=== PATIENT | female | born 1980 | race Caucasian/White ===

== ENCOUNTER 2016-09-10 03:01 | Emergency (ER) | payer OTHER ==
--- NOTE | 2016-09-10 03:32 | PDOC ---
History of Present Illness - General History Source: Patient Exam Limitations: No Limitations - History of Present Illness Initial Comments: 09/10/16 03:36 The patient is a 35 year old female with no significant past medical history who presents to the ED with sudden onset of chest pain few hours prior to arrival. Patient reports around 9:30pm she was lying down watching tv when she felt a sudden sharp pain along the left sternal border radiating down the left arm. Subsequently, the pain resolved on its own and then returned around midnight. She denies diaphoresis, lightheadedness, SOB, jaw pain, nausea, and vomiting. Patient reports having a similar episode in the past, when she decided to seek medical attention and told it was due to stress. She admits to having stress factors. Patient also has complaints of a mild headache. The patient denies fever, chills, cough, abdominal pain, and diarrhea. Allergies: NKDA Social History: No alcohol, tobacco, or drug use reported. Past Surgical History: None reported <Hemalatha Mcneil - Last Filed: 09/10/16 03:36> - General History Source: Patient <DaydaySha sheth - Last Filed: 09/10/16 06:06> - General Chief Complaint: Chest Pain Stated Complaint: CHEST PAIN Time Seen by Provider: 09/10/16 03:30 Past History <Hemalatha Mcneil - Last Filed: 09/10/16 03:36> - Past Medical History Asthma: No Cancer: No Cardiac Disorders: No Diabetes: No HTN: No Seizures: No Thyroid Disease: No - Psycho/Social/Smoking Cessation Hx Anxiety: No Suicidal Ideation: No Smoking Status: No Smoking History: Never smoked Have you smoked in the past 12 months: No Number of Cigarettes Smoked Daily: 0 Information on smoking cessation initiated: No Hx Alcohol Use: No Drug/Substance Use Hx: No Substance Use Type: None Hx Substance Use Treatment: No <Sha Peters - Last Filed: 09/10/16 06:06> - Past Medical History Allergies/Adverse Reactions: Allergies Allergy/AdvReac Type Severity Reaction Status Date / Time No Known Allergies Allergy Verified 03/27/14 00:21 Home Medications: Ambulatory Orders Amox-Tr/K Cl [Augmentin 875-125mg Tablet -] 1 tab PO BID #20 tablet 04/23/13 Ciprofloxacin HCl/Dexameth [Ciprodex Otic Suspension] 4 drop AD TID #1 bottle No Home Medications 0 dose .ROUTE UTDICT 04/23/13 Ibuprofen [Motrin -] 600 mg PO Q4H PRN #60 tablet 03/27/14 Review of Systems - Review of Systems Able to Perform ROS?: Yes Comments:: 09/10/16 03:38 CONSTITUTIONAL: Absent: fever, no chills, no fatigue EYES: Absent: visual changes ENT: Absent: ear pain, no sore throat CARDIOVASCULAR: +left sternal border chest pain radiating down left arm Absent: no palpitations RESPIRATORY: Absent: cough, no SOB GI: Absent: abdominal pain, no nausea, no vomiting, no constipation, no diarrhea GENITOURINARY: Absent: dysuria, no frequency, no hematuria MUSKULOSKELETAL: Absent: back pain, no arthralgia, no myalgia SKIN: Absent: rash NEURO: +headache <Hemalatha Mcneil - Last Filed: 09/10/16 03:36> *Physical Exam - Vital Signs Last Vital Signs Temp Pulse Resp BP Pulse Ox 98.1 F 94 H 18 146/92 98 09/10/16 03:13 09/10/16 03:13 09/10/16 03:13 09/10/16 03:13 09/10/16 03:13 - Physical Exam Comments: 09/10/16 03:38 GENERAL: Well-appearing, well-nourished. No apparent distress. HEENT: Normocephalic, atraumatic. PERRL, EOM intact. CARDIOVASCULAR: Normal S1, S2. Regular rate and rhythm. PULMONARY: Clear to auscultation bilaterally. ABDOMEN: Soft, non-distended, non-tender. EXTREMITIES: Normal ROM in all four extremities. No gross deformities. SKIN: Warm, dry. No rash NEUROLOGICAL: No focal neurological deficits. <Hemalatha Mcneil - Last Filed: 09/10/16 03:36> - Vital Signs Last Vital Signs Temp Pulse Resp BP Pulse Ox 98.1 F 94 H 18 146/92 98 09/10/16 03:13 09/10/16 03:13 09/10/16 03:13 09/10/16 03:13 09/10/16 03:13 <Sha Peters - Last Filed: 09/10/16 06:06> Heart Score/ECG Review - ECG Impressions Comment:: 09/10/16 03:38 NSR @81bpm Normal ECG <Hemalatha Mcneil - Last Filed: 09/10/16 03:36> ED Treatment Course - LABORATORY CBC & Chemistry Diagram: 09/10/16 03:40 09/10/16 03:40 <Sha Peters - Last Filed: 09/10/16 06:06> Medical Decision Making - Medical Decision Making 09/10/16 05:58 Dr. Peters: The scribe's documentation has been prepared under my direction and personally reviewed by me in its entirery. I confirm that the note above accurately reflects all work, treatment, procedures, and medical decision making performed by me. <Sha Peters - Last Filed: 09/10/16 06:06> *DC/Admit/Observation/Transfer - Attestations Scribe Attestion: 09/10/16 03:38 Documentation prepared by Hemalatha Mcneil, acting as vice president medical affairs for Sha Peters MD <Hemalatha Mcneil - Last Filed: 09/10/16 03:36> - Discharge Dispostion Admit: No <Sha Peters - Last Filed: 09/10/16 06:06> Diagnosis at time of Disposition: Chest pain - Discharge Dispostion Disposition: HOME Condition at time of disposition: Stable - Referrals Referrals: Roni Gregorio MD [Staff Physician] - - Patient Instructions Printed Discharge Instructions: DI for Chest Pain Print Language: ECUADOREAN
[2016-09-10 03:41] VITALS: BP 146/92; PULSE 94; TEMP 98.1; BMI 36.3
[2016-09-10 04:07] LABS: BASOPHIL 0.9 % (0-2.0); EOSINOPHIL 4.7 % (0-4.5); MCH 29.2 pg (25.7-33.7); MCHC 33.5 g/dl (32.0-36.0); MEAN CELL VOLUME 87.2 fl (80-96); MEAN PLT VOLUME 9.8 fl (7.5-11.1); NEUTROPHILS 58.6 % (42.8-82.8); PLATELET COUNT 161 K/MM3 (134-434); WHITE BLOOD COUNT 6.1 K/mm3 (4.0-10.0)
[2016-09-10 05:21] LABS: ALBUMIN 3.8 g/dl (3.4-5.0); ANION GAP 7 (8-16); BILIRUBIN,TOTAL 0.4 mg/dL (0.2-1.0); CALCIUM 8.3 mg/dL (8.5-10.1); CO2 23 mmol/L (21-32); CREATININE 0.6 mg/dL (0.55-1.02); GLUCOSE,RANDOM 116 mg/dL (74-106); SGOT/AST 26 U/L (15-37); SGPT/ALT 57 U/L (12-78); TOT PROT 7.3 g/dl (6.4-8.2)
[2016-09-10 05:24] LABS: ALK PHOS 117 U/L (45-117); TROPONIN I < 0.02 ng/ml (0.00-0.05)
--- NOTE | 2016-09-10 15:36 | EKG ---
Test Reason : Blood Pressure : / mmHG Vent. Rate : 081 BPM Atrial Rate : 081 BPM P-R Int : 154 ms QRS Dur : 098 ms QT Int : 368 ms P-R-T Axes : 026 -10 011 degrees QTc Int : 427 ms POOR DATA QUALITY, INTERPRETATION MAY BE ADVERSELY AFFECTED NORMAL SINUS RHYTHM NORMAL ECG NO PREVIOUS ECGS AVAILABLE Confirmed by RUDDY HOFFMAN MD ([id number]) on 09/10/2016 3:35:54 PM Referred By: Confirmed By:RUDDY HOFFMAN MD
== END 2016-09-10 06:14 | disposition home or self-care (01) ==
LOC: JER 03:01
DX: R07.89 Other chest pain (principal)
CPT/HCPCS: 36415; 80053; 82550; 82553; 84484; 84703; 85025; 93005; 93010; 99282-25

== ENCOUNTER 2019-04-22 02:09 | Emergency (ER) | payer OTHER ==
[2019-04-22 02:48] VITALS: BMI 34.6
--- NOTE | 2019-04-22 04:03 | PDOC ---
History of Present Illness - General Chief Complaint: Vaginal Bleeding Stated Complaint: VAGINAL BLEED Time Seen by Provider: 04/22/19 03:25 - History of Present Illness Initial Comments: Ms. Miller is a A1 @ 9 weeks 38 y/o female with PMH of anemia presenting with vaginal bleed. Reports that she started an elective termination on at [facility]. Took 1 tab of misoprostol on and 4 yesterday and is due for another 4 today. Reports subjective fever and chills, right sided abdominal pain, nausea, and vaginal bleeding that started yesterday. Reports that she has gone through numerous pads with vaginal bleeding. Reports that the abdominal pain is cramping in nature. Reports associated dizziness. Denies vomiting, chest pain, shortness of breath, dysuria, hematuria, hematochezia. Past History - Past Medical History Allergies/Adverse Reactions: Allergies Allergy/AdvReac Type Severity Reaction Status Date / Time No Known Allergies Allergy Verified 04/22/19 02:48 Home Medications: Ambulatory Orders Amox-Tr/K Cl [Augmentin 875-125mg Tablet -] 1 tab PO BID #20 tablet 04/23/13 Ciprofloxacin HCl/Dexameth [Ciprodex Otic Suspension] 4 drop AD TID #1 bottle No Home Medications 0 dose .ROUTE UTDICT 04/23/13 Ibuprofen [Motrin -] 600 mg PO Q4H PRN #60 tablet 03/27/14 Asthma: No Cancer: No Cardiac Disorders: No Diabetes: No HTN: No Seizures: No Thyroid Disease: No - Suicide/Smoking/Psychosocial Hx Smoking Status: No Smoking History: Never smoked Have you smoked in the past 12 months: No Number of Cigarettes Smoked Daily: 0 Hx Alcohol Use: No Drug/Substance Use Hx: No Substance Use Type: None Hx Substance Use Treatment: No Review of Systems - Review of Systems Comments:: GENERAL/CONSTITUTIONAL: Reports fever or chills. No weakness._ HEAD, EYES, EARS, NOSE AND THROAT: No change in vision. No change in hearing. No sore throat._ CARDIOVASCULAR: No chest pain or shortness of breath. RESPIRATORY: Denies cough, hemoptysis. GASTROINTESTINAL: Reports nausea. No vomiting, diarrhea or constipation. Reports abdominal pain. GENITOURINARY: Reports vaginal bleeding. No dysuria, frequency, or change in urination._ MUSCULOSKELETAL: No joint or muscle swelling or pain. No neck or back pain._ SKIN: No rash_ NEUROLOGIC: Reports lightheadedness. No headache, vertigo, loss of consciousness , or change in strength/sensation._ ENDOCRINE: No increased thirst. No abnormal weight change_ HEMATOLOGIC/LYMPHATIC: No anemia, easy bleeding, or history of blood clots._ ALLERGIC/IMMUNOLOGIC: No hives or skin allergy._ *Physical Exam - Vital Signs Last Vital Signs Temp Pulse Resp BP Pulse Ox 98.1 F 126 H 16 132/95 99 04/22/19 02:09 04/22/19 02:09 04/22/19 02:04/22/19 02:04/22/19 02:09 - Physical Exam Comments: GENERAL: Awake, alert, and oriented to person/place/time, in no acute distress_ HEAD: No signs of trauma, normocephalic, atraumatic _ EYES: PERRLA, EOMI, sclera anicteric, conjunctiva clear_ ENT: Hearing grossly normal, nares patent, oropharynx clear without exudates. No uvular deviation. Moist mucosa_ NECK: Normal ROM, supple, no lymphadenopathy, JVD, or masses_ LUNGS: No distress, speaks in full sentences, clear to auscultation bilaterally _ HEART: Regular rate and rhythm, normal S1 and S2, no murmurs appreciated, peripheral pulses normal and equal bilaterally._ ABDOMEN: Soft, TTP RUQ and RLQ, normoactive bowel sounds. No guarding, no rebound. No masses_ EXTREMITIES: Normal inspection, Normal range of motion, no edema. No clubbing or cyanosis_ NEUROLOGICAL: Cranial nerves II through XII grossly intact. Normal speech, normal gait, no focal sensorimotor deficits _ SKIN: Warm, Dry, normal turgor, no rashes or lesions noted_ PELVIC External genitalia unremarkable. Speculum exam blood observed in the posterior fornix. Vaginal wall mucosa is unremarkable. Cervix visualized and is unremarkable (closed in appearance without any protruding material). Bimanual exam without cervical motion tenderness. Mild left adnexal tenderness. ED Treatment Course - LABORATORY CBC & Chemistry Diagram: 04/22/19 04:44 04/22/19 04:44 Medical Decision Making - Medical Decision Making 38F A1 @ 9 weeks. Began elective termination on Thursday. Fever/chills/ vaginal bleeding/abdominal pain/dizziness starting yesterday. -CBC, CMP, beta HCG, type and screen, coags -tylenol IV, NS 04/22/19 06:54 Labs reviewed and wnl. Hgb stable at 12.4. No elevated WBC. Patient reports that she is feeling better after meds. Abdominal pain has resolved. As the patient is in the middle of elective termination, at this time it is not necessary to examine for retained products of conception. Plan to d/c home with strict return precautions. *DC/Admit/Observation/Transfer Diagnosis at time of Disposition: Termination of - Discharge Dispostion Disposition: HOME Condition at time of disposition: Stable - Referrals - Patient Instructions Additional Instructions: Please take Tylenol as needed for pain - follow the instructions on the package. Please keep your follow up appointment with [facility] in two weeks. If you experience any new, worsening, or concerning symptoms, including vaginal bleeding that does not stop, severe headache, chest pain, shortness of breath, nausea/vomiting, dizziness, or any other concerns, please return to the emergency department. - Post Discharge Activity
--- NOTE | 2019-04-22 04:05 | PDOC ---
Attending Attestation - Resident Resident Name: Javi Peterson - ED Attending Attestation I have performed the following: I have examined & evaluated the patient, The case was reviewed & discussed with the resident, I agree w/resident's findings & plan - HPI HPI: 04/22/19 06:09 Pt had misoprostol day before yesterday and yesterday; now with vag bleed, cramps and pain. Pt wants to know what is up. She has a lot of vag bleeding. - Physicial Exam PE: 04/22/19 06:10 Agree with resident exam. - Medical Decision Making 04/22/19 06:53 Vag exam normal; os closed; minimal bleeding inside vag vault. Pt's vitals returned to normal; no pain and no bleeding. No need for sono at this time. Pt will continue with her final dose of misoprostol at 3PM today; she is stable for discharge.
[2019-04-22] MEDS ORDERED: ACETAMINOPHEN 1000 MG/100 ML VIAL (NON FORMULARY) IVPB ONE (04:56)
[2019-04-22] MEDS ORDERED: SODIUM CHLORIDE 0.9% 500 ML INFUS.BAG IV ONE (04:56)
[2019-04-22 05:04] LABS: BASO % 0.3 % (0-2.0); EOS % 1.5 % (0-4.5); HEMATOCRIT 38.6 % (32.4-45.2); HEMOGLOBIN 12.4 GM/dL (10.7-15.3); LYMPH % 14.2 % (8-40); MCH 26.6 pg (25.7-33.7); MCHC 32.3 g/dl (32.0-36.0); MEAN CELL VOLUME 82.5 fl (80-96); MEAN PLT VOLUME 9.5 fl (7.5-11.1); MONO % 7.5 % (3.8-10.2); NEUT % 76.5 % (42.8-82.8); PLATELET COUNT 199 K/MM3 (134-434); RBC 4.68 M/mm3 (3.60-5.2); RDW 16.6 % (11.6-15.6)
[2019-04-22] MEDS ORDERED: ACETAMINOPHEN INJECTION 100 ML IVPB ONE (05:11)
[2019-04-22 05:20] LABS: INR 1.03 (0.83-1.09); PROTHROMBIN TIME (PATIENT) 12.1 SEC (9.7-13.0)
[2019-04-22 05:32] LABS: ALBUMIN 3.5 g/dl (3.4-5.0); BILIRUBIN,TOTAL 0.4 mg/dL (0.2-1); BLOOD UREA NITROGEN 9.9 mg/dL (7-18); CALCIUM 9.4 mg/dL (8.5-10.1); CREATININE 0.8 mg/dL (0.55-1.3); POTASSIUM 4.5 mmol/L (3.5-5.1)
[2019-04-22 07:12] VITALS: BP 106/71; PULSE 77; TEMP 98.4
== END 2019-04-22 07:13 | disposition home or self-care (01) ==
LOC: JER 02:09
DX: O03.4 Incomplete spontaneous abortion without complication (principal)
CPT/HCPCS: 36415; 80053; 84702; 85025; 85610; 86850; 86900; 86901; 99283-25; J0131

== ENCOUNTER 2020-11-09 02:38 | Day surgery (SDC) | payer OTHER ==
[2020-11-09 02:47] VITALS: BMI 36.9
[2020-11-09] MEDS ORDERED: SODIUM CHLORIDE 0.9% 500 ML INFUS.BAG IV ONE (02:49)
[2020-11-09] MEDS ORDERED: KETOROLAC TROMETHAMINE 30 MG/1 ML VIAL IVPUSH ONE (03:05)
[2020-11-09] MEDS ORDERED: KETOROLAC TROMETHAMINE 15 MG/ML VIAL ONE (03:13)
[2020-11-09 03:35] LABS: BASO % 0.3 % (0-2.0); EOS % 2.9 % (0-4.5); HEMATOCRIT 26.6 % (32.4-45.2); HEMOGLOBIN 8.5 GM/dL (10.7-15.3); LYMPH % 23.2 % (8-40); MCH 23.2 pg (25.7-33.7); MEAN CELL VOLUME 72.6 fl (80-96); MEAN PLT VOLUME 9.1 fl (7.5-11.1); MONO % 5.7 % (3.8-10.2); NEUT % 67.9 % (42.8-82.8); PLATELET COUNT 213 K/MM3 (134-434); RBC 3.67 M/mm3 (3.60-5.2); RDW 16.7 % (11.6-15.6); WHITE BLOOD COUNT 9.4 K/mm3 (4.0-10.0)
[2020-11-09 03:44] LABS: INR 0.95 (0.83-1.09); PROTHROMBIN TIME (PATIENT) 11.7 SEC (9.7-13.0)
[2020-11-09 07:09] LABS: POTASSIUM 3.8 mmol/L (3.5-5.1)
[2020-11-09 07:11] LABS: CALCIUM 8.8 mg/dL (8.5-10.1)
[2020-11-09 07:12] LABS: ALBUMIN 2.7 g/dl (3.4-5.0); BLOOD UREA NITROGEN 6.4 mg/dL (7-18)
[2020-11-09 07:15] LABS: CREATININE 0.4 mg/dL (0.55-1.3)
[2020-11-09 07:16] LABS: BILIRUBIN,TOTAL 0.2 mg/dL (0.2-1); TOT PROT 6.4 g/dl (6.4-8.2)
[2020-11-09] MEDS ORDERED: SODIUM CHLORIDE 0.9% 1000 ML INFUS.BAG IV ONE (07:58)
[2020-11-09] MEDS ORDERED: OXYTOCIN 20 UNITS in 0.9% NS 20 UNIT/1,000 ML INFUS.BAG IV SCH ×2 (08:00→12:45)
[2020-11-09] MEDS ORDERED: OXYTOCIN 10 UNITS/ML VIAL ONE (08:01)
[2020-11-09 08:16] LABS: ALBUMIN 2.6 g/dl (3.4-5.0); BILIRUBIN,TOTAL 0.3 mg/dl (0.2-1); CALCIUM 8.3 mg/dl (8.5-10); CREATININE 0.4 mg/dl (0.55-1.3); TOT PROT 5.5 g/dl (6.4-8.2)
[2020-11-09 08:17] LABS: BASO % 0.5 % (0-2.0); EOS % 1.7 % (0-4.5); HEMATOCRIT 23.5 % (32.4-45.2); HEMOGLOBIN 7.5 GM/dl (10.7-15.3); LYMPH % 18.1 % (8-40); MCH 23.1 pg (25.7-33.7); MCHC 31.7 g/dl (32.0-36.0); MEAN CELL VOLUME 72.9 fl (80-96); MONO % 2.9 % (3.8-10.2); NEUT % 76.8 % (42.8-82.8); PLATELET COUNT 162 K/MM3 (134-434); RBC 3.23 M/mm3 (3.60-5.2); RDW 15.5 % (11.6-15.6); WHITE BLOOD COUNT 8.9 K/mm3 (4.0-10.8)
[2020-11-09] MEDS ORDERED: PROPOFOL 20 ML ONE (11:32)
[2020-11-09] MEDS ORDERED: MIDAZOLAM HCL 2 MG/2 ML SINGLE DOSE VIAL ONE (11:32)
[2020-11-09] MEDS ORDERED: ROCURONIUM BROMIDE 50 MG/5 ML SYRINGE ONE (12:07)
[2020-11-09] MEDS ORDERED: ceFAZolin 2 GRAM PREMIX BAG IVPB ONE (12:12)
[2020-11-09] MEDS ORDERED: ceFAZolin SODIUM 1 GM VIAL ONE (12:16)
[2020-11-09] MEDS ORDERED: KETOROLAC TROMETHAMINE 30 MG/1 ML VIAL ONE (12:23)
[2020-11-09] MEDS ORDERED: DEXAMETHASONE SOD PHOSPHATE 4 MG/1 ML VIAL ONE (12:23)
[2020-11-09] MEDS ORDERED: NEOSTIGMINE METHYLSULFATE 0.5 MG/ML - 10 ML MDV ONE (12:39)
[2020-11-09] MEDS ORDERED: ACETAMINOPHEN 325 MG TABLET (FP) PO PRN (12:46)
[2020-11-09] MEDS ORDERED: ONDANSETRON 4 MG/2 ML VIAL IVPUSH PRN (12:49)
[2020-11-09] MEDS ORDERED: IBUPROFEN 400 MG TABLET (FP) PO PRN (12:50)
[2020-11-09 21:37] LABS: BASO % 0.1 % (0-2.0); EOS % 0.1 % (0-4.5); HEMATOCRIT 27.2 % (32.4-45.2); HEMOGLOBIN 8.8 GM/dL (10.7-15.3); LYMPH % 14.4 % (8-40); MCH 24.9 pg (25.7-33.7); MCHC 32.5 g/dl (32.0-36.0); MEAN CELL VOLUME 76.7 fl (80-96); MEAN PLT VOLUME 9.3 fl (7.5-11.1); MONO % 1.1 % (3.8-10.2); NEUT % 84.3 % (42.8-82.8); PLATELET COUNT 179 K/MM3 (134-434); RBC 3.54 M/mm3 (3.60-5.2); RDW 17.5 % (11.6-15.6); WHITE BLOOD COUNT 8.2 K/mm3 (4.0-10.0)
[2020-11-10 03:38] VITALS: BP 117/61; PULSE 58; TEMP 98.8
== END 2020-11-10 09:00 | disposition home or self-care (01) ==
LOC: JER 02:38 → FER 02:38 → JASUSAT 11:00 → J8W 15:44 → JASUSAT 11-10 09:00
PROVIDERS: ATTEND Obstetrics & Gynecology
PROC: 10D17ZZ Extraction of Products of Conception, Retained, Via Natural or Artificial Opening (ICD-10-PCS; principal; 2020-11-09 11:08)
DX: O03.4 Incomplete spontaneous abortion without complication (principal)
CPT/HCPCS: 36415; 36430; 76856-TC; 80053; 84702; 85025; 85610; 86850; 86900; 86901; 86922; 87070; 87075; 87205; 88305-TC; 94760; 99285-25; C9803; P9038; P9058; U0003

== ENCOUNTER 2021-03-21 00:54 | Inpatient (IN) | payer OTHER ==
[2021-03-21] MEDS ORDERED: morphine CARPU-JECT 2 MG/1 ML DISP.SYRIN IVPUSH ONE ×2 (01:42→03:44)
[2021-03-21] MEDS ORDERED: MORPHINE SULFATE 2 MG/ML VIAL ONE ×2 (01:56→04:20)
[2021-03-21 02:38] LABS: BASO % 0.7 % (0-2.0); EOS % 5.5 % (0-4.5); HEMATOCRIT 30.3 % (32.4-45.2); HEMOGLOBIN 9.1 GM/dL (10.7-15.3); LYMPH % 28.4 % (8-40); MCHC 29.9 g/dl (32.0-36.0); MEAN CELL VOLUME 61.8 fl (80-96); MEAN PLT VOLUME 8.2 fl (7.5-11.1); MONO % 5.6 % (3.8-10.2); NEUT % 59.8 % (42.8-82.8); PLATELET COUNT 243 10^3/uL (134-434); RDW 18.5 % (11.6-15.6); WHITE BLOOD COUNT 6.4 K/mm3 (4.0-10.0)
[2021-03-21 02:40] LABS: URINE APPEARANCE CLEAR; URINE BILIRUBIN NEGATIVE (NEGATIVE); URINE COLOR YELLOW; URINE GLUCOSE (UA) NEGATIVE (NEGATIVE); URINE KETONE NEGATIVE (NEGATIVE); URINE LEUK ESTERASE NEGATIVE (NEGATIVE); URINE NITRITE NEGATIVE (NEGATIVE); URINE PROTEIN NEGATIVE (NEGATIVE); URINE UROBILINOGEN 0.2 mg/dL (0.2-1.0)
[2021-03-21 02:47] LABS: INR 0.98 (0.83-1.09); PROTHROMBIN TIME (PATIENT) 11.9 SEC (9.7-13.0)
[2021-03-21 02:48] LABS: HCG,QUALITATIVE URINE Negative
[2021-03-21 03:00] LABS: BLOOD UREA NITROGEN 5.3 mg/dL (7-18)
[2021-03-21 03:04] LABS: BILIRUBIN,TOTAL 0.2 mg/dL (0.2-1)
[2021-03-21 03:26] LABS: MCH 18.5 pg (25.7-33.7)
[2021-03-21 03:51] LABS: CALCIUM 8.4 mg/dL (8.5-10.1); CREATININE 0.4 mg/dL (0.55-1.3); TOT PROT 8.3 g/dl (6.4-8.2)
[2021-03-21 05:12] LABS: ANISOCYTOSIS 2+; MACROCYTOSIS 1+; PLATELET ESTIMATE NORMAL
[2021-03-21] MEDS ORDERED: morphine CARPU-JECT 4 MG/1 ML DISP.SYRIN IVPUSH ONE (08:44)
[2021-03-21] MEDS ORDERED: morphine SULFATE 4 MG/ML VIAL ONE (08:48)
[2021-03-21] MEDS ORDERED: ROPIVACAINE HCL 0.5% 30ML VIAL ONE (13:00)
[2021-03-21] MEDS ORDERED: MIDAZOLAM HCL 2 MG/2 ML SINGLE DOSE VIAL ONE ×5 (13:02→13:57)
[2021-03-21] MEDS ORDERED: ceFAZolin SODIUM 1 GM VIAL IVPB ONE (13:45)
[2021-03-21] MEDS ORDERED: PROPOFOL 20 ML ONE (13:53)
[2021-03-21] MEDS ORDERED: PROMETHAZINE HCL 25 MG/1 ML VIAL IVPUSH PRN (15:10)
[2021-03-21] MEDS ORDERED: ONDANSETRON 4 MG/2 ML VIAL IVPUSH PRN (15:10)
[2021-03-21] MEDS ORDERED: ceFAZolin SODIUM 1 GM VIAL ONE (17:47)
[2021-03-21] MEDS ORDERED: DEXTROSE 5%-WATER - 50 ML IVPB ONE (17:47)
[2021-03-21] MEDS: CEFAZOLIN 1 GM in DEXTROSE 5%-WATER - 50 ML IVPB SCH (18:01)
[2021-03-21 18:13] VITALS: BMI 37.3
[2021-03-21] MEDS: oxyCODONE HCL 5 MG TABLET PO PRN ×2 (18:33→22:48)
[2021-03-21] MEDS: FERROUS GLUCONATE 324 MG TAB (FP) PO SCH (21:26)
[2021-03-22] MEDS ORDERED: DEXTROSE 5%-WATER - 50 ML IVPB ONE ×2 (00:54→10:24)
[2021-03-22] MEDS ORDERED: ceFAZolin SODIUM 1 GM VIAL ONE ×2 (00:54→10:24)
[2021-03-22] MEDS: CEFAZOLIN 1 GM in DEXTROSE 5%-WATER - 50 ML IVPB SCH ×2 (01:35→10:28)
[2021-03-22] MEDS: oxyCODONE HCL 5 MG TABLET PO PRN ×2 (04:21→10:29)
[2021-03-22] MEDS: MORPHINE SULFATE 2 MG/ML VIAL IVPUSH PRN ×3 (08:51→21:13)
[2021-03-22] MEDS ORDERED: ACETAMINOPHEN 325 MG TABLET (FP) PO ONE (09:30)
[2021-03-22 10:08] LABS: BASO % 0.4 % (0-2.0); HEMATOCRIT 26.3 % (32.4-45.2); LYMPH % 11.9 % (8-40); MCH 19.1 pg (25.7-33.7); MCHC 30.5 g/dl (32.0-36.0); MEAN CELL VOLUME 62.5 fl (80-96); MEAN PLT VOLUME 9.1 fl (7.5-11.1); NEUT % 74.7 % (42.8-82.8); PLATELET COUNT 177 10^3/uL (134-434); RBC 4.21 M/mm3 (3.60-5.2); RDW 18.9 % (11.6-15.6); WHITE BLOOD COUNT 9.1 K/mm3 (4.0-10.0)
[2021-03-22 10:28] LABS: ALBUMIN 3.5 g/dl (3.4-5.0); CALCIUM 8.3 mg/dL (8.5-10.1); MAGNESIUM 1.9 mg/dL (1.8-2.4)
[2021-03-22] MEDS: FERROUS GLUCONATE 324 MG TAB (FP) PO SCH ×2 (10:29→21:13)
[2021-03-22] MEDS: HYDROCHLOROTHIAZIDE 12.5 MG CAPSULE (FP) PO SCH (10:29)
[2021-03-22 10:31] LABS: CREATININE 0.5 mg/dL (0.55-1.3)
[2021-03-22 10:33] LABS: BILIRUBIN,TOTAL 0.8 mg/dL (0.2-1); TOT PROT 7.2 g/dl (6.4-8.2)
[2021-03-22] MEDS ORDERED: PT OWN MED DRAWER 7, Y5N ONE (13:05)
[2021-03-22] MEDS: ENOXAPARIN NA (PORCINE) 40 MG/0.4 ML DISP.SYRIN SQ SCH (16:32)
[2021-03-22] MEDS: ACETAMINOPHEN 325 MG TABLET (FP) PO PRN (17:06)
[2021-03-22] MEDS ORDERED: DOCUSATE SODIUM 100 MG CAPSULE (FP) PO ONE (20:03)
[2021-03-23] MEDS: MORPHINE SULFATE 2 MG/ML VIAL IVPUSH PRN ×3 (02:15→14:43)
[2021-03-23 09:33] LABS: BASO % 0.4 % (0-2.0); EOS % 1.7 % (0-4.5); HEMATOCRIT 27.2 % (32.4-45.2); HEMOGLOBIN 8.4 GM/dL (10.7-15.3); LYMPH % 14.3 % (8-40); MCHC 30.8 g/dl (32.0-36.0); MEAN CELL VOLUME 61.9 fl (80-96); MEAN PLT VOLUME 9.3 fl (7.5-11.1); MONO % 11.2 % (3.8-10.2); NEUT % 72.4 % (42.8-82.8); PLATELET COUNT 194 10^3/uL (134-434); RBC 4.38 M/mm3 (3.60-5.2); RDW 18.5 % (11.6-15.6)
[2021-03-23 09:34] LABS: MCH 19.1 pg (25.7-33.7)
[2021-03-23 10:19] LABS: BLOOD UREA NITROGEN 5.6 mg/dL (7-18); CALCIUM 8.4 mg/dL (8.5-10.1); MAGNESIUM 2.3 mg/dL (1.8-2.4)
[2021-03-23 10:22] LABS: CREATININE 0.4 mg/dL (0.55-1.3)
[2021-03-23 10:25] LABS: PHOSPHOROUS 3.6 mg/dL (2.5-4.9)
[2021-03-23] MEDS: FERROUS GLUCONATE 324 MG TAB (FP) PO SCH ×2 (10:59→21:27)
[2021-03-23] MEDS: HYDROCHLOROTHIAZIDE 12.5 MG CAPSULE (FP) PO SCH (10:59)
[2021-03-23] MEDS: ENOXAPARIN NA (PORCINE) 40 MG/0.4 ML DISP.SYRIN SQ SCH (11:00)
[2021-03-23] MEDS ORDERED: MORPHINE SULFATE 2 MG/ML VIAL IVPUSH PRN (19:30)
[2021-03-23] MEDS ORDERED: POTASSIUM CHLORIDE TABS 20 MEQ TABLET.ER (FP) PO ONE (19:30)
[2021-03-23] MEDS: morphine SULFATE 4 MG/ML VIAL IVPUSH PRN (21:27)
[2021-03-24] MEDS: morphine SULFATE 4 MG/ML VIAL IVPUSH PRN ×2 (08:46→15:37)
[2021-03-24] MEDS: FERROUS GLUCONATE 324 MG TAB (FP) PO SCH ×2 (10:20→21:32)
[2021-03-24] MEDS: ENOXAPARIN NA (PORCINE) 40 MG/0.4 ML DISP.SYRIN SQ SCH (10:20)
[2021-03-24] MEDS: HYDROCHLOROTHIAZIDE 12.5 MG CAPSULE (FP) PO SCH (10:20)
[2021-03-24] MEDS ORDERED: PT OWN MED DRAWER 7, Y5N ONE (15:34)
[2021-03-24] MEDS: ACETAMINOPHEN 325 MG TABLET (FP) PO PRN (19:51)
[2021-03-24 20:07] VITALS: BP 129/74; PULSE 85; TEMP 98.6
== END 2021-03-25 03:48 | disposition home health service (06) | DRG 313 ==
LOC: JER 00:54 → JERBED 05:47 → J5S 10:31
PROVIDERS: ADMIT Internal Medicine; ATTEND Internal Medicine
PROC: 0QSH04Z Reposition Left Tibia with Internal Fixation Device, Open Approach (ICD-10-PCS; 2021-03-21)
PROC: 0QSK04Z Reposition Left Fibula with Internal Fixation Device, Open Approach (ICD-10-PCS; principal; 2021-03-21 13:55)
DX: S82.842A Displaced bimalleolar fracture of left lower leg, initial encounter for closed fracture (principal); D50.9 Iron deficiency anemia, unspecified; I10 Essential (primary) hypertension; E66.9 Obesity, unspecified; Z68.37 Body mass index [BMI] 37.0-37.9, adult; W19.XXXA Unspecified fall, initial encounter; Y93.9 Activity, unspecified; Y92.89 Other specified places as the place of occurrence of the external cause; Y99.9 Unspecified external cause status
CPT/HCPCS: 36415; 71045-TC-FY; 73562-TC-LT-FY; 73590-TC-LT-FY; 73610-TC-LT-FY; 76000-TC-FY; 80048; 80053; 81003; 82306; 82728; 83021; 83540; 83550; 83735; 84100; 84703; 85025; 85045; 85610; 85660; 85730; 86850; 86900; 86901; 87086; 93005; 93010; 94760; 97116-GP; 97161-GP; 99285-25; C9803; U0003; U0005

== ENCOUNTER 2021-10-30 09:56 | Emergency (ER) | payer OTHER ==
[2021-10-30 10:03] VITALS: BP 157/97; PULSE 74; TEMP 97.6; BMI 36.7
[2021-10-30] MEDS ORDERED: SODIUM CHLORIDE 1,000 ML IV STA (10:15)
[2021-10-30] MEDS ORDERED: ACETAMINOPHEN 1000 MG/100 ML BAG IVPB ONE (10:36)
[2021-10-30] MEDS ORDERED: ACETAMINOPHEN INJECTION 100 ML IVPB ONE (10:57)
[2021-10-30 12:47] LABS: BASO % 0.5 % (0-2.0); EOS % 6.9 % (0-4.5); HEMATOCRIT 28.8 % (32.4-45.2); HEMOGLOBIN 8.7 GM/dL (10.7-15.3); LYMPH % 27.8 % (8-40); MCHC 30.2 g/dl (32.0-36.0); MEAN CELL VOLUME 61.4 fl (80-96); NEUT % 58.8 % (42.8-82.8); PLATELET COUNT 199 10^3/uL (134-434); RDW 21.3 % (11.6-15.6); WHITE BLOOD COUNT 5.1 K/mm3 (4.0-10.0)
[2021-10-30 12:49] LABS: MCH 18.5 pg (25.7-33.7)
[2021-10-30 12:58] LABS: CALCIUM 8.6 mg/dL (8.5-10.1)
[2021-10-30 12:59] LABS: ALBUMIN 3.4 g/dl (3.4-5.0); BLOOD UREA NITROGEN 3.5 mg/dL (7-18); MAGNESIUM 2.2 mg/dL (1.8-2.4)
[2021-10-30 13:02] LABS: CREATININE 0.3 mg/dL (0.55-1.3); INR 1.03 (0.83-1.09); PROTHROMBIN TIME (PATIENT) 11.8 SEC (9.7-13.0)
[2021-10-30 13:03] LABS: BILIRUBIN,TOTAL 0.3 mg/dL (0.2-1)
[2021-10-30 13:04] LABS: TOT PROT 7.3 g/dl (6.4-8.2)
[2021-10-30 13:10] LABS: ANISOCYTOSIS 3+; MACROCYTOSIS 0; PLATELET ESTIMATE NORMAL
== END 2021-10-30 17:22 | disposition home or self-care (01) ==
LOC: JER 09:56
PROC: 3E0333Z Introduction of Anti-inflammatory into Peripheral Vein, Percutaneous Approach (ICD-10-PCS; principal; 2021-10-30)
PROC: 3E0337Z Introduction of Electrolytic and Water Balance Substance into Peripheral Vein, Percutaneous Approach (ICD-10-PCS; 2021-10-30)
DX: R07.89 Other chest pain (principal)
CPT/HCPCS: 36415; 71046-TC-FY; 80053; 83735; 84484; 85025; 85379; 85610; 85730; 93005; 93010; 93970-TC; 99285-25

== ENCOUNTER 2022-03-24 20:29 | Emergency (ER) | payer OTHER ==
[2022-03-24 21:19] VITALS: BMI 39.9
[2022-03-24] MEDS ORDERED: ACETAMINOPHEN 500 MG TABLET (FP) ONE (22:11)
[2022-03-24] MEDS ORDERED: ACETAMINOPHEN 500 MG TABLET (FP) PO ONE (22:15)
[2022-03-24 22:31] VITALS: BP 144/80; PULSE 80; RESP 18; TEMP 98.1
[2022-03-24 22:36] LABS: EPI CELLS >36 /uL (0-25.1); HYALINE CASTS 1 /uL (0-3.1); PH,URINE 6.5 (5.0-8.0); URINE APPEARANCE CLOUDY; URINE BACTERIA 3717 /uL (0-1359); URINE BILIRUBIN NEGATIVE (NEGATIVE); URINE COLOR YELLOW; URINE GLUCOSE (UA) NEGATIVE (NEGATIVE); URINE KETONE NEGATIVE (NEGATIVE); URINE LEUK ESTERASE 1+ (NEGATIVE); URINE NITRITE NEGATIVE (NEGATIVE); URINE PROTEIN NEGATIVE (NEGATIVE); URINE RBC 2 /uL (0-23.9); URINE UROBILINOGEN 0.2 mg/dL (0.2-1.0); URINE WBC 87 /uL (0-25.8)
[2022-03-24 23:01] LABS: URIC ACID 3.4 mg/dL (2.6-7.2)
== END 2022-03-24 23:34 | disposition home or self-care (01) ==
LOC: JER 20:29
DX: O26.893 Other specified pregnancy related conditions, third trimester (principal); R07.9 Chest pain, unspecified; R51.9 Headache, unspecified; R11.2 Nausea with vomiting, unspecified; Z3A.35 35 weeks gestation of pregnancy
CPT/HCPCS: 36415; 81003; 82570; 82977; 83010; 84156; 84450; 84460; 84550; 85032; 85045; 93005; 93010; 99281-25